=== PATIENT | male | born 1965 | race Caucasian/White ===

== ENCOUNTER 2022-03-14 06:06 | Emergency (ER) | payer BC, OTHER ==
[2022-03-14 06:19] VITALS: BP 148/105; PULSE 71
[2022-03-14] MEDS ORDERED: Lidocaine 2% Viscous Solution 15 ML UD PO ONE (06:31)
[2022-03-14] MEDS ORDERED: Clindamycin HCl 150 MG Cap PO ONE (06:31)
== END 2022-03-14 06:45 | disposition home or self-care (01) ==
LOC: DL.ED 06:06
DX: K04.7 Periapical abscess without sinus (principal); K02.9 Dental caries, unspecified; I10 Essential (primary) hypertension
CPT/HCPCS: 99282; A9270

== ENCOUNTER 2023-04-04 14:57 | Emergency (ER) | payer OTHER ==
[2023-04-04 15:29] VITALS: BP 169/104; PULSE 70
== END 2023-04-04 16:12 | disposition home or self-care (01) ==
LOC: DL.ED 14:57
DX: S97.82XA Crushing injury of left foot, initial encounter (principal); S93.602A Unspecified sprain of left foot, initial encounter; I10 Essential (primary) hypertension; Z79.01 Long term (current) use of anticoagulants; W23.0XXA Caught, crushed, jammed, or pinched between moving objects, initial encounter; Y92.89 Other specified places as the place of occurrence of the external cause; Y99.0 Civilian activity done for income or pay
CPT/HCPCS: 73630-LT; 99283; 99284

== ENCOUNTER 2024-02-25 08:44 | Emergency (ER) | payer OTHER ==
[2024-02-25 09:21] VITALS: PULSE 68
[2024-02-25 10:26] VITALS: BP 161/117
== END 2024-02-25 10:28 | disposition home or self-care (01) ==
LOC: DL.ED 08:44
DX: M12.9 Arthropathy, unspecified (principal); R53.1 Weakness; I10 Essential (primary) hypertension
CPT/HCPCS: 73030-LT; 99283

== ENCOUNTER 2025-05-16 15:18 | Emergency (ER) | payer SELFPAY ==
[2025-05-16 15:29] VITALS: BP 162/91; PULSE 59
== END 2025-05-16 15:45 | disposition home or self-care (01) ==
LOC: DL.ED 15:18
DX: S76.212A Strain of adductor muscle, fascia and tendon of left thigh, initial encounter (principal); I10 Essential (primary) hypertension; X50.0XXA Overexertion from strenuous movement or load, initial encounter; Y93.89 Activity, other specified; Y99.0 Civilian activity done for income or pay
CPT/HCPCS: 99282; 99283; A9270